=== PATIENT | male | born 1975 | race Two or more races ===

== ENCOUNTER 2019-06-12 15:12 | Emergency (ER) | payer SELFPAY ==
[~2019-06-12] VITALS: Ht 177.8 cm; Wt 127.0 kg
[2019-06-12 15:23] VITALS: BP 130/83
[2019-06-12] MEDS ORDERED: ASPirin 81 mg TAB PO ONE (15:45)
== END 2019-06-12 16:40 | disposition left against medical advice (07) ==
LOC: EDBD 15:12 → ER 15:21 → EDBD 15:21 → ER 16:40
DX: S29.011A Strain of muscle and tendon of front wall of thorax, initial encounter (principal); F41.9 Anxiety disorder, unspecified; I10 Essential (primary) hypertension; F17.210 Nicotine dependence, cigarettes, uncomplicated; X58.XXXA Exposure to other specified factors, initial encounter; Y93.89 Activity, other specified; Y92.89 Other specified places as the place of occurrence of the external cause; Y99.8 Other external cause status
CPT/HCPCS: 71046; 93005